=== PATIENT | male | born 1970 | race American Indian/Alaskan Native ===

== ENCOUNTER 2017-05-12 16:16 | Emergency (ER) | payer SELFPAY ==
[2017-05-12 17:09] VITALS: BP 144/86
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
[2017-05-12 17:55] LABS: Urine Drugs of Abuse Note Disclamer
[2017-05-12 18:07] LABS: Bilirubin,Urine NEG (Negative); Blood,Urine NEG (Negative); Ketones,Urine TR mg/dL (Negative); Leukocyte Esterase,Urine NEG (Negative); Mucus,Urine FEW /HPF; Nitrite,Urine NEG (Negative); Protein,Urine <15 mg/dL mg/dL (Negative); Urobilinogen,Urine < 2.0 mg/dL (<2.0)
[2017-05-12 18:10] LABS: Basophils % (Auto) 0.8 % (0.0-1.8); Eosinophils % (Auto) 1.1 % (0.0-4.3); Hematocrit 45.3 % (35.5-45.6); Hemoglobin 14.8 gm/dl (11.8-15.2); Mean Corpuscular HGB Conc 33 % (32-34); Mean Corpuscular Hemoglobin 29 pg (28-32); Mean Corpuscular Volume 87 fl (84-94); Platelet Count 200 K/mm3 (140-440); Red Blood Count 5.18 M/mm3 (3.65-5.03); Red Cell Distribution Width 13.6 % (13.2-15.2); White Blood Count 10.4 K/mm3 (4.5-11.0)
[2017-05-12 18:24] LABS: Alanine Aminotransferase 8 units/L (7-56); Albumin/Globulin Ratio 1.1 %; Alkaline Phosphatase 102 units/L (35-129); Blood Urea Nitrogen 15 mg/dL (9-20); Calcium 9.5 mg/dL (8.4-10.2); Carbon Dioxide 26 mmol/L (22-30); Glucose 115 mg/dL (75-100); Total Protein 7.5 g/dL (6.3-8.2)
[2017-05-12 18:25] LABS: Anion Gap 17 mmol/L; Chloride 102.9 mmol/L (98-107); Potassium 3.7 mmol/L (3.6-5.0); Sodium 142 mmol/L (137-145)
--- NOTE | 2017-05-13 09:17 | XRay Report ---
Cervical spine 3 views: History: Injury. Findings: Normal height of vertebral bodies and intervertebral discs. The seventh cervical vertebral body and the spinous process not optimally visualized on lateral projection and cannot be evaluated completely. Normal articular surfaces. No fracture. Normal prevertebral soft tissue. Impression: Impression: No evidence of fracture upper 6 vertebral body and spinous processes. The seventh is not optimally visualized. No evidence of acute fracture.
== END 2017-05-12 18:50 | disposition home or self-care (01) ==
LOC: ED 16:16
DX: M79.601 Pain in right arm (principal); R61 Generalized hyperhidrosis; R53.1 Weakness; I10 Essential (primary) hypertension; V09.9XXA Pedestrian injured in unspecified transport accident, initial encounter; Y93.9 Activity, unspecified; Y92.9 Unspecified place or not applicable; Y99.9 Unspecified external cause status
CPT/HCPCS: 36415; 72040; 80053; 80307; 81001; 85025; 93005; 93010; 99284